=== PATIENT | female | born 1990 | race Caucasian/White ===

== ENCOUNTER 2017-01-02 22:29 | Emergency (ER) | payer MEDICAID ==
[~2017-01-02] VITALS: Ht 162.6 cm; Wt 52.2 kg
[2017-01-02 22:32] VITALS: BP_SYST 159
[2017-01-02] MEDS ORDERED: valACYclovir HCL 500 MG TABLET PO ONE (23:00)
[2017-01-02] MEDS ORDERED: prednisoLONE 15 MG/5 ML UDC PO ONE (23:00)
[2017-01-02 23:41] VITALS: BP_SYST 146
== END 2017-01-02 23:41 | disposition home or self-care (01) ==
LOC: SED 22:29
DX: G51.0 Bell's palsy (principal)
CPT/HCPCS: 99283

== ENCOUNTER 2017-01-04 17:51 | Emergency (ER) | payer MEDICAID ==
[~2017-01-04] VITALS: Ht 162.6 cm; Wt 68.0 kg
[2017-01-04 17:58] VITALS: BP_SYST 162
[2017-01-04] MEDS ORDERED: KETOROLAC TROMETHAMINE 60 MG/2 ML VIAL IM ONE (18:30)
[2017-01-04] MEDS ORDERED: ONDANSETRON 4 MG ODT TAB PO ONE (18:30)
[2017-01-04] MEDS ORDERED: TETRACAINE HCL 0.5% OPHTHALMIC DROPS 15 ML OP ONE (19:00)
[2017-01-04] MEDS ORDERED: BALANCED SALT IRRIG SOLN 15 ML IO ONE (19:00)
[2017-01-04] MEDS ORDERED: FLUORESCEIN SODIUM 1 MG OPHTHALMIC STRIP OP ONE (19:00)
[2017-01-04 19:45] VITALS: BP_SYST 162
[2017-01-04] MEDS ORDERED: PREDNISONE 20 MG TABLET PO ONE (19:45)
== END 2017-01-04 19:45 | disposition home or self-care (01) ==
LOC: SED 17:51
DX: G51.0 Bell's palsy (principal); T38.0X5A Adverse effect of glucocorticoids and synthetic analogues, initial encounter; T37.5X5A Adverse effect of antiviral drugs, initial encounter; Y92.89 Other specified places as the place of occurrence of the external cause
CPT/HCPCS: 81025; 96372; 99284; J1885; J7512; Q0162

== ENCOUNTER 2017-11-13 14:43 | Emergency (ER) | payer MEDICAID ==
[~2017-11-13] VITALS: Ht 162.6 cm; Wt 65.3 kg
[2017-11-13 14:46] VITALS: BP_SYST 153
[2017-11-13] MEDS ORDERED: KETOROLAC TROMETHAMINE 30 MG VIAL IM ONE (15:00)
[2017-11-13] MEDS ORDERED: DIPH-TET-PERTUS Vaccine 0.5 ML VIAL (ADACEL) I.M. ONE (15:00)
[2017-11-13] MEDS ORDERED: BACITRACIN 1 GM OINT TP ONE (15:00)
[2017-11-13 15:45] VITALS: BP_SYST 128
== END 2017-11-13 15:45 | disposition home or self-care (01) ==
LOC: SED 14:43
DX: S80.12XA Contusion of left lower leg, initial encounter (principal); W01.110A Fall on same level from slipping, tripping and stumbling with subsequent striking against sharp glass, initial encounter; Y93.66 Activity, soccer; Y92.322 Soccer field as the place of occurrence of the external cause; Y99.8 Other external cause status
CPT/HCPCS: 73590; 81025; 90471; 90715; 96372; 99284; J1885

== ENCOUNTER 2018-08-29 17:39 | Emergency (ER) | payer MEDICAID ==
[~2018-08-29] VITALS: Ht 162.6 cm; Wt 66.2 kg
[2018-08-29 18:05] VITALS: BP_SYST 150
[2018-08-29 20:40] VITALS: BP_SYST 130
== END 2018-08-29 20:40 | disposition home or self-care (01) ==
LOC: SED 17:39
DX: R51 Headache (principal); R03.0 Elevated blood-pressure reading, without diagnosis of hypertension
CPT/HCPCS: 81025; 99283

== ENCOUNTER 2018-09-21 15:16 | Emergency (ER) | payer MEDICAID ==
[~2018-09-21] VITALS: Ht 162.6 cm; Wt 66.7 kg
[2018-09-21 15:25] VITALS: BP_SYST 165
[2018-09-21 16:59] LABS: BILIRUBIN,URINE NEGATIVE (NEGATIVE); BLOOD, URINE 2+ (NEGATIVE); CLARITY/URINE HAZY (CLEAR); COLOR,URINE YELLOW (YELLOW); GLUCOSE,URINE NEGATIVE (NEGATIVE); KETONES,URINE NEGATIVE (NEGATIVE); LEUKOCYTE ESTERASE ,URINE NEGATIVE (NEGATIVE); NITRITE, URINE NEGATIVE (NEGATIVE); PH,URINE 7.5 (5.0-8.0); PROTEIN URINE NEGATIVE (NEGATIVE); UROBILINOGEN,URINE 0.2 (0.2-1.0)
[2018-09-21 17:07] LABS: BACTERIA,URINE FEW /HPF (None Seen); MUCUS,URINE None Seen /LPF (None Seen); RBC,URINE NONE SEEN /HPF (0-3); URINE AMORPHOUS PHOSPHATES 2+ /HPF (None Seen); WBC,URINE 0-3 /HPF (0-3)
[2018-09-21 19:59] LABS: BASOPHILS % (AUTO) 0.3 % (0.0-2.0); EOSINOPHILS # (AUTO) 0.1 K/uL (0.0-0.4); EOSINOPHILS % (AUTO) 0.5 % (0.0-4.0); HEMATOCRIT 39.5 % (36-48); HEMOGLOBIN 12.8 g/dL (12.0-16.0); LYMPHOCYTES # (AUTO) 2.1 K/uL (1.0-5.5); LYMPHOCYTES % (AUTO) 18.9 % (20.5-51.5); MEAN CORPUSCULAR HEMOGLOBIN 28 pg (27-31); MEAN CORPUSCULAR HGB CONC 32 % (32-36); MEAN CORPUSCULAR VOLUME 86 fL (79.0-98.0); MONOCYTES # (AUTO) 0.5 K/uL (0.0-1.0); MONOCYTES % (AUTO) 4.4 % (1.7-9.3); NEUTROPHILS # (AUTO) 8.4 K/uL (1.8-7.7); NEUTROPHILS % (AUTO) 75.9 % (40.0-70.0); PLATELET COUNT (AUTO) 315 K/uL (130-430); RED BLOOD CELL COUNT(AUTO) 4.62 MIL/uL (4.2-6.2); RED CELL DISTRIBUTION WIDTH 13.9 % (9.0-15.0)
[2018-09-21 20:01] LABS: CALCIUM 9.2 mg/dL (8.4-11.0); CREATININE 0.72 mg/dL (0.55-1.30); POTASSIUM 4.2 mmol/L (3.5-5.1)
[2018-09-21 20:09] LABS: ALBUMIN 3.7 g/dL (3.4-4.8); TOTAL BILIRUBIN 0.7 mg/dL (0.0-1.0)
[2018-09-21 21:22] VITALS: BP_SYST 145
== END 2018-09-21 21:22 | disposition home or self-care (01) ==
LOC: SED 15:16
DX: R07.89 Other chest pain (principal); R10.9 Unspecified abdominal pain; R74.0 Nonspecific elevation of levels of transaminase and lactic acid dehydrogenase [LDH]; R03.0 Elevated blood-pressure reading, without diagnosis of hypertension
CPT/HCPCS: 36415; 71045; 76700-TC; 80053; 81000-TC; 81025; 83690-TC; 84484; 85025; 93005; 99284

== ENCOUNTER 2018-09-22 09:18 | Emergency (ER) | payer MEDICAID ==
[~2018-09-22] VITALS: Ht 162.6 cm; Wt 70.3 kg
[2018-09-22 09:18] VITALS: BP_SYST 125
--- NOTE | 2018-09-22 09:18 | NUR ---
BROUGHT BACK TO BED #5 AND TRIAGED. REPORT GIVEN TO GEETA
--- NOTE | 2018-09-22 09:40 | NUR ---
PATIENT CAME IN COMPLAINING OF MILD DISCOMFORT IN EPIGASTRIC AREA. PATIENT SAID PAIN 2/10 AND BETTER THAN YESTERDAY. PATIENT NOT COMPLAINING OF NAUSEA OR VOMITING. PATIENT ALERT AND ORIENTED X4. PATIENT SAID SHE JUST WANTS TO MAKE SURE EVERYTHING IS OKAY.
--- NOTE | 2018-09-22 10:02 | NUR ---
ER Dr. RAZO at bedside examining patient.
[2018-09-22 10:33] LABS: BASOPHILS % (AUTO) 0.5 % (0.0-2.0); EOSINOPHILS # (AUTO) 0.1 K/uL (0.0-0.4); EOSINOPHILS % (AUTO) 1.9 % (0.0-4.0); HEMATOCRIT 40.9 % (36-48); HEMOGLOBIN 13.4 g/dL (12.0-16.0); LYMPHOCYTES # (AUTO) 1.4 K/uL (1.0-5.5); LYMPHOCYTES % (AUTO) 18.2 % (20.5-51.5); MEAN CORPUSCULAR HEMOGLOBIN 28 pg (27-31); MEAN CORPUSCULAR HGB CONC 33 % (32-36); MEAN CORPUSCULAR VOLUME 86 fL (79.0-98.0); MONOCYTES # (AUTO) 0.4 K/uL (0.0-1.0); MONOCYTES % (AUTO) 4.8 % (1.7-9.3); NEUTROPHILS # (AUTO) 5.6 K/uL (1.8-7.7); NEUTROPHILS % (AUTO) 74.6 % (40.0-70.0); PLATELET COUNT (AUTO) 318 K/uL (130-430); RED BLOOD CELL COUNT(AUTO) 4.78 MIL/uL (4.2-6.2); WHITE BLOOD COUNT (AUTO) 7.5 K/uL (4.8-10.8)
[2018-09-22 10:43] LABS: CALCIUM 9.5 mg/dL (8.4-11.0); CREATININE 0.75 mg/dL (0.55-1.30); POTASSIUM 4.2 mmol/L (3.5-5.1)
[2018-09-22 10:47] LABS: ALBUMIN 3.9 g/dL (3.4-4.8); TOTAL BILIRUBIN 0.6 mg/dL (0.0-1.0)
[2018-09-22 11:05] LABS: BILIRUBIN,URINE NEGATIVE (NEGATIVE); BLOOD, URINE NEGATIVE (NEGATIVE); CLARITY/URINE CLEAR (CLEAR); COLOR,URINE YELLOW (YELLOW); GLUCOSE,URINE NEGATIVE (NEGATIVE); KETONES,URINE NEGATIVE (NEGATIVE); LEUKOCYTE ESTERASE ,URINE NEGATIVE (NEGATIVE); NITRITE, URINE NEGATIVE (NEGATIVE); PROTEIN URINE NEGATIVE (NEGATIVE); UROBILINOGEN,URINE 0.2 (0.2-1.0)
[2018-09-22 12:10] VITALS: BP_SYST 125
--- NOTE | 2018-09-22 12:10 | NUR ---
Patient given written and verbal discharge instructions and verbalizes understanding. ER MD discussed with patient the results and treatment provided. Patient in stable condition. ID arm band removed. IV catheter removed intact and dressing applied, no active bleeding. No Rx given. Patient educated on pain management and to follow up with PMD. Pain Scale 0/10 . Opportunity for questions provided and answered. Medication side effect fact sheet provided.
== END 2018-09-22 12:10 | disposition home or self-care (01) ==
LOC: SED 09:18
DX: R07.89 Other chest pain (principal); R74.0 Nonspecific elevation of levels of transaminase and lactic acid dehydrogenase [LDH]
CPT/HCPCS: 36415; 80053; 81003; 81025; 83690-TC; 84484; 85025; 93005; 99284

== ENCOUNTER 2019-07-30 12:43 | Emergency (ER) | payer MEDICAID ==
[~2019-07-30] VITALS: Ht 162.6 cm; Wt 71.7 kg
[2019-07-30 12:50] VITALS: BP_SYST 147
--- NOTE | 2019-07-30 12:50 | NUR ---
Patient to ER bed 04 to gown for evaluation. Side rails up.
--- NOTE | 2019-07-30 12:52 | NUR ---
Patient arrived in the ED c/o chest congestion, runny nose, right earpain, and shortness of breath that started 3 days ago - Taking OTC pain meds. Denied any chest pain. Denied any fevers, nausea, vomiting, or chills. Patient is alert and oriented x4, respirations even and unlabored, speaking in full sentences, ambulating with a steady gait. VSS, pain level 2/10. Informed of wait time. Instructed to notify ED staff for any changes in condition or worsening of symptoms. Patient verbalized understanding.
--- NOTE | 2019-07-30 12:55 | NUR ---
RICKY Marquez [employer] at bedside examining patient.
[2019-07-30] MEDS ORDERED: IPRATROPIUM/ALBUTEROL SULFATE 3 ML AMPUL.NEB (DUONEB) INH ONE (13:45)
--- NOTE | 2019-07-30 13:57 | NUR ---
flu swab collected and sent to lab
--- NOTE | 2019-07-30 13:57 | NUR ---
x-ray at the bedside
[2019-07-30 15:06] VITALS: BP_SYST 147
--- NOTE | 2019-07-30 15:07 | NUR ---
Patient given written and verbal discharge instructions and verbalizes understanding. ER MD discussed with patient the results and treatment provided. Patient in stable condition. ID arm band removed. Rx of Azithromycin, Promethazine, Motrin, Tylenol, and albuterol given. Patient educated on pain management and to follow up with PMD. Pain Scale 3/10. Opportunity for questions provided and answered. Medication side effect fact sheet provided.
== END 2019-07-30 15:06 | disposition home or self-care (01) ==
LOC: SED 12:43
DX: J06.9 Acute upper respiratory infection, unspecified (principal); R03.0 Elevated blood-pressure reading, without diagnosis of hypertension
CPT/HCPCS: 36415; 71045; 86710; 94640; 99284